=== PATIENT | female | born 1990 | race Caucasian/White ===

== ENCOUNTER 2016-11-25 21:52 | Emergency (ER) | payer SELFPAY ==
[~2016-11-25] VITALS: Ht 167.6 cm; Wt 111.5 kg
[~2016-11-25 21:52] MED LIST: FISH500C PO; FLUO40CA PO; NAPR500 PO; [UNRECOGNIZED DRUG - OTHER] PO
[2016-11-25 22:03] VITALS: BP 123/77; PULSE 110; RESP 16; TEMP 98.9; O2SAT 98
[2016-11-25 23:08] LABS: BLOOD, URINE NEG (NEG); GLUCOSE,URINE NEG (NEG); KETONE, URINE NEG (NEG); NITRITE,URINE NEG (NEG); PH, URINE 5.5 (5.0-8.5)
[2016-11-25] MEDS ORDERED: PROZ40CA PO (23:15)
[2016-11-25] MEDS ORDERED: SODIUM CHLOR 0.9% 1000 ML INJ 1,000 ML IV SCH (23:19)
[2016-11-25 23:28] LABS: METHOD OF COLLECTION CLEAN CATCH; URINE COLOR YELLOW (YELLW/STRAW)
[2016-11-25 23:29] LABS: BACTERIA, URINE FEW /hpf; COMMENT (UR) CULT NOT INDICATED; CULTURE IF INDICATED CULT NOT INDICATED; MUCUS URINE MANY /lpf (OCC)
[2016-11-25] MEDS ORDERED: SODIUM CHLORIDE 0.9% FLUSH 5 ML FLUSH IVF PRN (23:30)
[2016-11-25] MEDS ORDERED: PANTOPRAZOLE SODIUM 40 MG VIAL IVP ONE (23:30)
[2016-11-25] MEDS ORDERED: DICYCLOMINE HCL 10 MG CAP PO ONE (23:30)
[2016-11-25] MEDS ORDERED: ONDANSETRON HCL 4 MG/2 ML VIAL IVP ONE (23:30)
[2016-11-25] MEDS ORDERED: SODIUM CHLOR 0.9% 1000 ML INJ 1,000 ML IV ONE (23:30)
--- NOTE | 2016-11-25 23:30 | PD ---
HPI Chief Complaint: GI Complaint Time Seen by Provider: 23:09 Travel History International Travel<30 days: No Contact w/Intl Traveler<30days: No Traveled to known affect area: No History of Present Illness HPI Patient is a 26-year-old female who presents to emergency room with complaints of nausea vomiting and diarrhea. Patient reports that her onset of symptoms around 7 PM tonight. Patient reports that she had a hamburger rohini for dinner , reports that a few hours later, her symptoms began. Patient reports that her symptoms initially started with nausea and vomiting, reports that she had increased pain to her left upper quadrant and epigastrium. Reports that upon arrival to emergency room, she began having diarrhea. Reports no sick contacts at home or at work. Patient reports that she has history of gastric ulcers, reports that she was on the PPI in the past, reports that she has not been able to take her medications as it become too expensive for her. Reports that she has tried taking Pepcid with minimal relief of symptoms.. Patient with no fevers or chills, patient denies any recent travels. Patient does admit to having increased dysuria with urinary urgency and frequency. Patient denies any vaginal discharge or bleeding. PFSH Past Medical History Hx Anticoagulant Therapy: No Asthma: Yes Anxiety: Yes Depression: Yes Cardiovascular Problems: No Chemotherapy: No Cerebrovascular Accident: No Diabetes: No Diminished Hearing: No Psychiatric: Yes (OCD) Respiratory: No Immunizations Current: Yes Pneumonia: Yes Ulcer: Yes (GASTRIC) Influenza Vaccination: No ?: Not LMP: 10/30/16 : 0 Ovarian Cysts: Yes Past Surgical History Appendectomy: Yes (06/2013) Hysterectomy: No Social History Alcohol Use: Yes (VERY RARELY) Tobacco Use: No (QUIT 2011 smoked 5 cigs a day for 5 yrs) Substance Use: No Allergies-Medications (Allergen,Severity, Reaction): Coded Allergies: Morphine (Verified Allergy, Severe, 11/25/16) Pen-Vee K (Verified Allergy, Severe, Swelling, 11/25/16) Penicillin (Verified Allergy, Severe, Swelling, 11/25/16) Egg Allergy (Verified Allergy, Intermediate, PT DENIES, 11/25/16) [place] (Verified Allergy, Intermediate, CONGESTION/SOB, 11/25/16) Cane Sugar (Verified Allergy, Unknown, 11/25/16) Wheat Flour (Verified Allergy, Unknown, sick stomach, 11/25/16) Reported Meds & Prescriptions Reported Meds & Active Scripts Active Reported Prozac (Fluoxetine HCl) 40 Mg Cap 40 Mg PO DAILY Review of Systems Gastrointestinal: Positive: Nausea, Vomiting, Diarrhea, Abdominal Pain Genitourinary: Positive: Urgency, Frequency, Dysuria Physical Exam Narrative GENERAL: No acute distress, nontoxic SKIN: Warm and dry. HEAD: Atraumatic. Normocephalic. EYES:. No injection or drainage. ENT: No nasal bleeding or discharge. Mucous membranes pink and moist. NECK: Trachea midline. No JVD. CARDIOVASCULAR: Regular rate and rhythm. No murmur appreciated. RESPIRATORY: No accessory muscle use. Clear to auscultation. Breath sounds equal bilaterally. GASTROINTESTINAL: Abdomen soft, non-tender, patient with no peritoneal signs, she with increased tenderness to epigastrium to left upper quadrant MUSCULOSKELETAL: No obvious deformities. No clubbing. No cyanosis. No edema. NEUROLOGICAL: Awake and alert. No obvious cranial nerve deficits. Motor grossly within normal limits. Normal speech. PSYCHIATRIC: Appropriate mood and affect; insight and judgment normal. Data Data Last Documented VS Vital Signs Date Time Temp Pulse Resp B/P Pulse Ox O2 Delivery O2 Flow Rate FiO2 11/25/16 23:51 85 16 99 Room Air 11/25/16 22:03 98.9 123/77 Orders Urinalysis - C+S If Indicated (11/25/16 22:42) Ed Urine Pregnancytest Poc (11/25/16 22:43) Complete Blood Count With Diff (11/25/16 23:19) Comprehensive Metabolic Panel (11/25/16 23:19) Lipase (11/25/16 23:19) Prothrombin Time / Inr (Pt) (11/25/16 23:19) Act Partial Throm Time (Ptt) (11/25/16 23:19) Iv Access Insert/Monitor (11/25/16 23:19) Ecg Monitoring (11/25/16 23:19) Oximetry (11/25/16 23:19) Ondansetron Inj (Zofran Inj) (11/25/16 23:30) Pantoprazole Inj (Protonix Inj) (11/25/16 23:30) Sodium Chlor 0.9% 1000 Ml Inj (Ns 1000 M (11/25/16 23:19) Sodium Chloride 0.9% Flush (Ns Flush) (11/25/16 23:30) Dicyclomine (Bentyl) (11/25/16 23:30) Sodium Chlor 0.9% 1000 Ml Inj (Ns 1000 M (11/25/16 23:30) Labs Laboratory Tests Test 11/25/16 22:30 Urine Collection Type CLEAN CATCH Urine Color YELLOW Urine Turbidity CLEAR Urine pH 5.5 Urine Specific [place] 1.022 Urine Protein NEG mg/dL Urine Glucose (UA) NEG mg/dL Urine Ketones NEG mg/dL Urine Occult Blood NEG Urine Nitrite NEG Urine Bilirubin NEG Urine Leukocyte Esterase NEG Urine WBC 3-5 /hpf Urine Squamous Epithelial 6-8 /hpf Cells Urine Bacteria FEW /hpf Urine Mucus MANY /lpf Microscopic Urinalysis Comment CULT NOT INDICATED MDM Medical Decision Making Medical Screen Exam Complete: Yes Emergency Medical Condition: Yes Interpretation(s) Vital Signs Date Time Temp Pulse Resp B/P Pulse Ox O2 Delivery O2 Flow Rate FiO2 11/25/16 22:03 98.9 110 16 123/77 98 Differential Diagnosis Gastritis, gastroenteritis, ulcer, uti Narrative Course Patient is a 26-year-old female who presents to emergency room with complaints of nausea vomiting diarrhea. Patient reports that her onset of symptoms was around 7 PM tonight. Patient reports that she has history of gastric ulcers, reports that she is supposed be on a PPI (omeprazole) but has not been able to afford it and has not been on this medication for the past week. Patient with pain to her epigastrium to left upper quadrant Overall, patient nontoxic in appearance. IV line established. Plan to hydrate patient with IV fluids and antinausea medications. Will give patient a dose of IV Protonix. CBC, CMP, UA ordered for further evaluation of symptoms. Patient re-evaluated after medications given to her, pt reports that "I am feeling much better." labs pending Patient signed out to Dr Roth at end of shift Linh Astudillo DO Nov 25, 2016 23:30
[2016-11-25 23:51] VITALS: PULSE 85; RESP 16; O2SAT 99
[2016-11-26 00:13] LABS: AUTOMATED NEUTROPHIL # 14.4 TH/MM3 (1.8-7.7); BASOPHIL # 0.2 TH/MM3 (0-0.2); BASOPHIL % 0.9 % (0.0-2.0); CHLORIDE 108 MEQ/L (98-107); EOSINOPHIL # 0.3 TH/MM3 (0-0.4); EOSINOPHIL % 1.9 % (0.0-4.0); HEMATOCRIT 42.4 % (35.0-46.0); LYMPH % 6.9 % (9.0-44.0); LYMPHOCYTE # 1.2 TH/MM3 (1.0-4.8); MEAN CELL VOLUME 84.7 FL (80.0-100.0); MEAN CORPUSCULAR HEMOGLOBIN 27.8 PG (27.0-34.0); MEAN CORPUSCULAR HGB CONC 32.9 % (32.0-36.0); MONO % 3.6 % (0.0-8.0); NEUT % 86.7 % (16.0-70.0); PLATELET COUNT 260 TH/MM3 (150-450); POTASSIUM 3.7 MEQ/L (3.5-5.1); RED BLOOD COUNT 5.01 MIL/MM3 (4.00-5.30); RED CELL DISTRIBUTION WIDTH 14.3 % (11.6-17.2); SODIUM (NA) 142 MEQ/L (136-145); WHITE BLOOD COUNT 16.7 TH/MM3 (4.0-11.0)
[2016-11-26 00:17] LABS: ANION GAP 10 MEQ/L (5-15); BICARBONATE 23.7 MEQ/L (21.0-32.0); BLOOD UREA NITROGEN 13 MG/DL (7-18)
[2016-11-26 00:19] LABS: HEMO FLAGS DIFF FINAL
[2016-11-26 00:20] LABS: ALT (GPT) 19 U/L (10-53); AST (GOT) 13 U/L (15-37); GLOMERULAR FILTRATION RATE 102 ML/MIN (>89)
[2016-11-26 00:21] LABS: TOTAL BILIRUBIN ADULT 0.5 MG/DL (0.2-1.0)
[2016-11-26 00:23] LABS: ALKALINE PHOSPHATASE 82 U/L (45-117)
[2016-11-26 01:15] VITALS: BP 138/62; PULSE 86; RESP 18; O2SAT 98
--- NOTE | 2016-11-26 01:26 | PD ---
Physical Exam Date Seen by Provider: Nov 26, 2016 Time Seen by Provider: 00:15 Narrative GENERAL: Well-developed well-nourished female in no acute distress no respiratory distress SKIN: Warm and dry. CARDIOVASCULAR: Regular rate and rhythm without murmurs, gallops, or rubs. RESPIRATORY: Breath sounds equal bilaterally. No accessory muscle use. GASTROINTESTINAL: Abdomen soft, diffusely tender without guarding or rebound, nondistended. Data Data Last Documented VS Vital Signs Date Time Temp Pulse Resp B/P Pulse Ox O2 Delivery O2 Flow Rate FiO2 11/26/16 01:15 86 18 138/62 98 Room Air 11/25/16 22:03 98.9 Orders Urinalysis - C+S If Indicated (11/25/16 22:42) Ed Urine Pregnancytest Poc (11/25/16 22:43) Complete Blood Count With Diff (11/25/16 23:19) Comprehensive Metabolic Panel (11/25/16 23:19) Lipase (11/25/16 23:19) Prothrombin Time / Inr (Pt) (11/25/16 23:19) Act Partial Throm Time (Ptt) (11/25/16 23:19) Iv Access Insert/Monitor (11/25/16 23:19) Ecg Monitoring (11/25/16 23:19) Oximetry (11/25/16 23:19) Ondansetron Inj (Zofran Inj) (11/25/16 23:30) Pantoprazole Inj (Protonix Inj) (11/25/16 23:30) Sodium Chlor 0.9% 1000 Ml Inj (Ns 1000 M (11/25/16 23:19) Sodium Chloride 0.9% Flush (Ns Flush) (11/25/16 23:30) Dicyclomine (Bentyl) (11/25/16 23:30) Sodium Chlor 0.9% 1000 Ml Inj (Ns 1000 M (11/25/16 23:30) Labs Laboratory Tests Test 11/25/16 11/25/16 22:30 23:30 Urine Collection Type CLEAN CATCH Urine Color YELLOW Urine Turbidity CLEAR Urine pH 5.5 Urine Specific [place] 1.022 Urine Protein NEG mg/dL Urine Glucose (UA) NEG mg/dL Urine Ketones NEG mg/dL Urine Occult Blood NEG Urine Nitrite NEG Urine Bilirubin NEG Urine Leukocyte Esterase NEG Urine WBC 3-5 /hpf Urine Squamous Epithelial 6-8 /hpf Cells Urine Bacteria FEW /hpf Urine Mucus MANY /lpf Microscopic Urinalysis Comment CULT NOT INDICATED White Blood Count 16.7 TH/MM3 Red Blood Count 5.01 MIL/MM3 Hemoglobin 13.9 GM/DL Hematocrit 42.4 % Mean Corpuscular Volume 84.7 FL Mean Corpuscular Hemoglobin 27.8 PG Mean Corpuscular Hemoglobin 32.9 % Concent Red Cell Distribution Width 14.3 % Platelet Count 260 TH/MM3 Mean Platelet Volume 9.3 FL Neutrophils (%) (Auto) 86.7 % Lymphocytes (%) (Auto) 6.9 % Monocytes (%) (Auto) 3.6 % Eosinophils (%) (Auto) 1.9 % Basophils (%) (Auto) 0.9 % Neutrophils # (Auto) 14.4 TH/MM3 Lymphocytes # (Auto) 1.2 TH/MM3 Monocytes # (Auto) 0.6 TH/MM3 Eosinophils # (Auto) 0.3 TH/MM3 Basophils # (Auto) 0.2 TH/MM3 CBC Comment DIFF FINAL Differential Comment Prothrombin Time 10.5 SEC Prothromb Time International 1.0 RATIO Ratio Activated Partial 24.8 SEC Thromboplast Time Sodium Level 142 MEQ/L Potassium Level 3.7 MEQ/L Chloride Level 108 MEQ/L Carbon Dioxide Level 23.7 MEQ/L Anion Gap 10 MEQ/L Blood Urea Nitrogen 13 MG/DL Creatinine 0.70 MG/DL Estimat Glomerular Filtration 102 ML/MIN Rate Random Glucose 95 MG/DL Calcium Level 8.6 MG/DL Total Bilirubin 0.5 MG/DL Aspartate Amino Transf 13 U/L (AST/SGOT) Alanine Aminotransferase 19 U/L (ALT/SGPT) Alkaline Phosphatase 82 U/L Total Protein 8.0 GM/DL Albumin 3.8 GM/DL Lipase 102 U/L [facility] Medical Record Reviewed: Yes Supervised Visit with PRISCILA: No Interpretation(s) Laboratory Tests Test 11/25/16 11/25/16 22:30 23:30 Urine Collection Type CLEAN CATCH Urine Color YELLOW Urine Turbidity CLEAR Urine pH 5.5 Urine Specific [place] 1.022 Urine Protein NEG mg/dL Urine Glucose (UA) NEG mg/dL Urine Ketones NEG mg/dL Urine Occult Blood NEG Urine Nitrite NEG Urine Bilirubin NEG Urine Leukocyte Esterase NEG Urine WBC 3-5 /hpf Urine Squamous Epithelial 6-8 /hpf Cells Urine Bacteria FEW /hpf Urine Mucus MANY /lpf Microscopic Urinalysis Comment CULT NOT INDICATED White Blood Count 16.7 TH/MM3 Red Blood Count 5.01 MIL/MM3 Hemoglobin 13.9 GM/DL Hematocrit 42.4 % Mean Corpuscular Volume 84.7 FL Mean Corpuscular Hemoglobin 27.8 PG Mean Corpuscular Hemoglobin 32.9 % Concent Red Cell Distribution Width 14.3 % Platelet Count 260 TH/MM3 Mean Platelet Volume 9.3 FL Neutrophils (%) (Auto) 86.7 % Lymphocytes (%) (Auto) 6.9 % Monocytes (%) (Auto) 3.6 % Eosinophils (%) (Auto) 1.9 % Basophils (%) (Auto) 0.9 % Neutrophils # (Auto) 14.4 TH/MM3 Lymphocytes # (Auto) 1.2 TH/MM3 Monocytes # (Auto) 0.6 TH/MM3 Eosinophils # (Auto) 0.3 TH/MM3 Basophils # (Auto) 0.2 TH/MM3 CBC Comment DIFF FINAL Differential Comment Sodium Level 142 MEQ/L Potassium Level 3.7 MEQ/L Chloride Level 108 MEQ/L Carbon Dioxide Level 23.7 MEQ/L Anion Gap 10 MEQ/L Blood Urea Nitrogen 13 MG/DL Creatinine 0.70 MG/DL Estimat Glomerular Filtration 102 ML/MIN Rate Random Glucose 95 MG/DL Calcium Level 8.6 MG/DL Total Bilirubin 0.5 MG/DL Aspartate Amino Transf 13 U/L (AST/SGOT) Alanine Aminotransferase 19 U/L (ALT/SGPT) Alkaline Phosphatase 82 U/L Total Protein 8.0 GM/DL Albumin 3.8 GM/DL Lipase 102 U/L Differential Diagnosis please refer to Dr Astudillo's dictation Narrative Course Accepted in transfer of care from Dr. Astudillo for follow-up of pending labs and patient disposition; reportedly patient is clinically improved after medications anticipate white count to be elevated patient is status post appendectomy and does not have a localizing exam. Patient reexamined and abdomen is diffusely tender without guarding or rebound @1:23 AM IV fluids infused patient reports she is feeling markedly improved white count is elevated at 16,700 with 87% neutrophils; complete metabolic panel with lipase grossly within normal range; urinalysis no indication for culture; discussed with patient proceeding with CT abdomen and pelvis and patient has declined as she feels markedly improved after fluids and now with activity which previously was precipitating her discomfort symptoms are not exacerbated. Patient has had 2 previous abdominal CTs for same presentation which revealed no acute abnormality other than ovarian cysts which the past. Patient is able to ambulate about the emergency department comfortably reportedly. At this point in time white count with shift is most likely reflective of dehydration at time of specimen collection along with inflammation and stress demargination. POC hcg: negative. Patient declines CT abdomen and pelvis. Diagnosis Primary Impression: Gastroenteritis Referrals: Primary Care Physician call for appointment Patient Instructions: General Instructions Additional Instruction: Follow clear liquid diet for next 12-24 hours advance diet as tolerated to bland /Rob diet and regular diet as tolerated Take omeprazole as prescribed Follow-up with your primary care physician Return to the emergency department for any concerns or change in condition Monitor temperature every 4 hours and take as needed acetaminophen/Tylenol every 4 hours for fever 100.4F or greater Avoid nonsteroidal anti-inflammatory medication such as ibuprofen/Motrin/Advil or Aleve/Naprosyn/naproxen Med/Other Pt SpecificInfo: Prescription(s) given Scripts Ondansetron Odt (Zofran Odt)4 Mg Tab4 Mg SL Q6HR PRN (Nausea/Vomiting) #10 TAB Ref 0 Prov:Sophie Roth MD 11/26/16 Omeprazole 40 Mg Cap40 Mg PO DAILY #15 CAP Ref 0 Prov:Sophie Roth MD 11/26/16 Disposition: 01 DISCHARGE HOME Condition: Stable Sophie Roth MD Nov 26, 2016 01:26
[2016-11-26 01:40] LABS: APTT (PATIENT) 24.8 SEC (24.3-30.1); PROTHROMBIN TIME - PATIENT 10.5 SEC (9.8-11.6)
[2016-11-26] MEDS ORDERED: OMEP40CA2 PO (02:02)
[2016-11-26] MEDS ORDERED: ZOFR4TAB3 SL (02:03)
[2016-11-26] MEDS ORDERED: ONDANSETRON ODT 4 MG TAB PO ONE (02:15)
== END 2016-11-26 02:18 | disposition home or self-care (01) ==
LOC: PHED 21:52
DX: K52.9 Noninfective gastroenteritis and colitis, unspecified (principal); F41.8 Other specified anxiety disorders
CPT/HCPCS: 80053; 81001; 83690; 84703; 85025; 85610; 85730; 96361; 96374; 96375; 99284; C9113; J2405; J7030

== ENCOUNTER 2016-12-26 18:10 | Emergency (ER) | payer SELFPAY ==
[~2016-12-26] VITALS: Ht 167.6 cm; Wt 112.0 kg
[~2016-12-26 18:10] MED LIST changes: -FISH500C PO; -FLUO40CA PO; -NAPR500 PO; +OMEP40CA2 PO; +PROZ40CA PO; +ZOFR4TAB3 SL; -[UNRECOGNIZED DRUG - OTHER] PO
[2016-12-26 18:26] VITALS: BP 135/90; PULSE 85; RESP 18; TEMP 97.5; O2SAT 98
[2016-12-26] MEDS ORDERED: IBUP800T23 PO (20:37)
--- NOTE | 2016-12-26 20:37 | PD ---
HPI . Swelling in her neck Chief Complaint: ENT Complaint Time Seen by Provider: 20:16 Travel History International Travel<30 days: No Contact w/Intl Traveler<30days: No Traveled to known affect area: No History of Present Illness HPI Patient presents with some swelling in her anterior neck for the last several days. It is painful. Patient reports that she has had sinus congestion and sore throat as well as ear pain for several weeks. She states that she is fatigued. PFSH Past Medical History Hx Anticoagulant Therapy: No Asthma: Yes Anxiety: Yes Depression: Yes Cardiovascular Problems: No Chemotherapy: No Cerebrovascular Accident: No Diabetes: No Diminished Hearing: No Psychiatric: Yes (OCD) Respiratory: No Immunizations Current: Yes Pneumonia: Yes Ulcer: Yes (GASTRIC) Influenza Vaccination: No ?: Not : 0 Ovarian Cysts: Yes Past Surgical History Appendectomy: Yes (06/2013) Hysterectomy: No Social History Alcohol Use: Yes (VERY RARELY) Tobacco Use: No (QUIT 2011 smoked 5 cigs a day for 5 yrs) Substance Use: No Allergies-Medications (Allergen,Severity, Reaction): Coded Allergies: Morphine (Verified Allergy, Severe, 12/26/16) Pen-Vee K (Verified Allergy, Severe, Swelling, 12/26/16) Penicillin (Verified Allergy, Severe, Swelling, 12/26/16) Egg Allergy (Verified Allergy, Intermediate, PT DENIES, 12/26/16) [place] (Verified Allergy, Intermediate, CONGESTION/SOB, 12/26/16) Cane Sugar (Verified Allergy, Unknown, 12/26/16) Wheat Flour (Verified Allergy, Unknown, sick stomach, 12/26/16) Reported Meds & Prescriptions Reported Meds & Active Scripts Active Ibuprofen 800 Mg Tab 800 Mg PO Q8H PRN Review of Systems Except as stated in HPI: all other systems reviewed are Neg General / Constitutional: Positive: Other (fatigue), No: Fever, Chills HENT: Positive: Sore Throat, Congestion, Earache Cardiovascular: Positive: Chest Pain or Discomfort Respiratory: Positive: Cough Gastrointestinal: No: Nausea, Vomiting, Diarrhea Hematologic/Lymphatic: Positive: Lymph Node Enlargement Physical Exam Narrative GENERAL: This is a healthy-appearing young woman who does not appear to be in any acute distress. SKIN: Warm and dry. HEAD: Atraumatic. Normocephalic. EYES: Pupils equal and round. ENT: No nasal bleeding or discharge. Mucous membranes pink and moist. She has postnasal drip. The oropharynx has no edema and no tonsillar enlargement. TMs are shotty and cuellar with good light reflexes bilaterally. NECK: Trachea midline. Shotty cervical lymphadenopathy. Neck supple. CARDIOVASCULAR: Regular rate and rhythm. Heart sounds normal. RESPIRATORY: No accessory muscle use. Lungs clear with full air movement throughout. GASTROINTESTINAL: Abdomen soft, non-tender, nondistended. MUSCULOSKELETAL: No obvious deformities. No edema. NEUROLOGICAL: Awake and alert. No obvious cranial nerve deficits. Motor grossly within normal limits. Normal speech. PSYCHIATRIC: Appropriate mood and affect; insight and judgment normal. Data Data Last Documented VS Vital Signs Date Time Temp Pulse Resp B/P Pulse Ox O2 Delivery O2 Flow Rate FiO2 12/26/16 18:26 97.5 85 18 135/90 98 Orders Group A Rapid Strep Screen (12/26/16 20:26) Monoscreen (12/26/16 20:26) Strep Culture (Group A) (12/26/16 20:25) [facility] Medical Decision Making Medical Screen Exam Complete: Yes Emergency Medical Condition: Yes Differential Diagnosis Differential diagnosis includes but is not limited to influenza, upper respiratory infection, bronchitis, pneumonia Narrative Course Patient presents with swollen, painful cervical lymph nodes. She has a benign physical exam. I have explained to her that this is most likely viral. I have ordered a strep and a Monospot. The Monospot is a send out to the main. She will be discharged after I see her strep screen. Strep screen is negative. Diagnosis Primary Impression: Cervical lymphadenopathy Patient Instructions: General Instructions, Lymphadenopathy (ED) Additional Instructions: I recommend the use of a Neti Pot. You may use a nasal spray such as Afrin for up to 3 days as needed for nasal congestion. You may take an [id number] antihistamine such as Zyrtec, Perla or Claritin as needed for runny secretions. You may take pseudoephedrine as needed for congestion. You will need to sign for this at the pharmacy. You may take plain Mucinex, 1200 mg twice a day as needed for thick secretions. You may take a cough syrup such as Delsym as needed for cough. See your primary care provider in about a week for recheck. Med/Other Pt SpecificInfo: Prescription(s) given Scripts Ibuprofen 800 Mg Nem737 Mg PO Q8H PRN (swollen glands) #30 TAB Ref 0 Prov:Delmy Guillen MD 12/26/16 Disposition: 01 DISCHARGE HOME Condition: Stable Delmy Guillen MD Dec 26, 2016 20:37
== END 2016-12-26 21:08 | disposition home or self-care (01) ==
LOC: PHED 18:10 → PHEFT 21:08
DX: R59.0 Localized enlarged lymph nodes (principal); H92.09 Otalgia, unspecified ear; J02.9 Acute pharyngitis, unspecified; J45.909 Unspecified asthma, uncomplicated; R05 Cough
CPT/HCPCS: 86308; 87081; 87880; 99283

== ENCOUNTER 2017-06-11 16:25 | Emergency (ER) | payer SELFPAY ==
[~2017-06-11] VITALS: Ht 167.6 cm; Wt 130.6 kg
[~2017-06-11 16:25] MED LIST changes: +IBUP800T23 PO; -OMEP40CA2 PO; -PROZ40CA PO; -ZOFR4TAB3 SL
[2017-06-11 16:27] VITALS: BP 141/72; PULSE 92; RESP 16; TEMP 98.4; O2SAT 98
[2017-06-11] MEDS ORDERED: HYDR-3533 PO (16:40)
[2017-06-11] MEDS ORDERED: CLIN1CAP6 PO (16:40)
--- NOTE | 2017-06-11 16:40 | PD ---
HPI Chief Complaint: Oral / Dental Pain or Problem Time Seen by Provider: 16:38 Travel History International Travel<30 days: No Contact w/Intl Traveler<30days: No Traveled to known affect area: No History of Present Illness HPI 27 yo F c/o 2 days left jaw pain and swelling, worse with palpation, constant throbbing with radiation to the jaw. + Subjective fevers. Rhinorrhea and sinus pain reported. OTC medications have conferred some benefit. Non-productive cough reported. Pt has hx of dentalgia 2/2 wisdom teeth impaction and believes pain today is similar. Dental follow up has been complicated by lack of financial resources per patient. PFSH Past Medical History Hx Anticoagulant Therapy: No Asthma: Yes Anxiety: Yes Depression: Yes Cardiovascular Problems: No Chemotherapy: No Cerebrovascular Accident: No Diabetes: No Diminished Hearing: No Psychiatric: Yes (OCD) Respiratory: No Immunizations Current: Yes Pneumonia: Yes Ulcer: Yes (GASTRIC) ?: Not LMP: NOW : 0 Ovarian Cysts: Yes Past Surgical History Appendectomy: Yes (06/2013) Hysterectomy: No Social History Alcohol Use: Yes (VERY RARELY) Tobacco Use: No (QUIT 2011 smoked 5 cigs a day for 5 yrs) Substance Use: No Allergies-Medications (Allergen,Severity, Reaction): Coded Allergies: Morphine (Verified Allergy, Severe, 06/11/17) Pen-Vee K (Verified Allergy, Severe, Swelling, 06/11/17) Penicillin (Verified Allergy, Severe, Swelling, 06/11/17) Egg Allergy (Verified Allergy, Intermediate, PT DENIES, 06/11/17) [place] (Verified Allergy, Intermediate, CONGESTION/SOB, 06/11/17) Cane Sugar (Verified Allergy, Unknown, 06/11/17) Wheat Flour (Verified Allergy, Unknown, sick stomach, 06/11/17) Reported Meds & Prescriptions Reported Meds & Active Scripts Active Reported Fish Oil + D3 (Fish Oil-Cholecalciferol) 1,200-1,000 Mg-Unit Cap 1 Cap PO DAILY Folic Acid 400 Mcg Tab 400 Mcg PO DAILY Fluoxetine (Fluoxetine HCl) 40 Mg Cap 40 Cap PO DAILY Review of Systems Except as stated in HPI: all other systems reviewed are Neg General / Constitutional: Positive: Fever (subjective) Physical Exam Narrative GENERAL: 27 yo F, WNWD, NAD SKIN: Warm and dry. HEAD: Normocephalic. ENT: In region of angle of mandible there is TTP with trace swelling. No LAD. TMs appears intact with clear bony landmark visualization. Dentition is in a generally good state of repair. EYES: No scleral icterus. No injection or drainage. NECK: Supple, trachea midline. No JVD or lymphadenopathy. Data Data Last Documented VS Vital Signs Date Time Temp Pulse Resp B/P Pulse Ox O2 Delivery O2 Flow Rate FiO2 06/11/17 16:27 98.4 92 16 141/72 98 VS reviewed [facility] Medical Decision Making Medical Screen Exam Complete: Yes Emergency Medical Condition: Yes Medical Record Reviewed: Yes Differential Diagnosis Dental carries, dental abscess, URI, salivary stone, AOM Narrative Course Presentation could reflect a salivary stone, potentially a dental abscess. It's likely the latter as patient has had multiple similar priors diagnosed as such. Clinda script. Follow up with dentist. Diagnosis Primary Impression: Dentalgia Referrals: Dentist 2 days Additional Instructions: You have a choice when it comes to health care, and we are glad that you chose [facility]. Hopefully, we have met your expectations on today's visit. You are welcome to return to [facility] at any time, as we are committed to meeting the health care needs of our community. Med/Other Pt SpecificInfo: Prescription(s) given Disposition: 01 DISCHARGE HOME Condition: Stable Marcio Solo MD Jun 11, 2017 16:40
[2017-06-11] MEDS ORDERED: FISHCAP4 PO (16:43)
[2017-06-11] MEDS ORDERED: FLUO40CA PO (16:43)
[2017-06-11] MEDS ORDERED: FOLI400T PO (16:43)
== END 2017-06-11 17:10 | disposition home or self-care (01) ==
LOC: PHED 16:25
DX: K08.89 Other specified disorders of teeth and supporting structures (principal); R22.0 Localized swelling, mass and lump, head; J34.89 Other specified disorders of nose and nasal sinuses; R51 Headache; R05 Cough; Z87.09 Personal history of other diseases of the respiratory system; Z86.59 Personal history of other mental and behavioral disorders; Z87.19 Personal history of other diseases of the digestive system; Z87.891 Personal history of nicotine dependence
CPT/HCPCS: 99282